=== PATIENT | female | born 1965 | race Caucasian/White ===

== ENCOUNTER 2017-12-21 10:27 | Emergency (ER) | payer MEDICARE ==
[~2017-12-21] VITALS: Ht 167.6 cm; Wt 93.0 kg
[~2017-12-21 10:27] MED LIST: ACYC-1 PO; ALLE24TA PO; BUSP10 PO; CLON0.5T PO; CYMB60CA PO; DILT180C56 PO; LEXA10TA PO; LYRI75CA PO; ST J81CH PO; SULF1TAB47 PO; THYR30 PO; TRAZ100 PO; ZANA4CAP PO; ZANT300T PO
[2017-12-21 10:40] VITALS: BP 95/78; PULSE 78; RESP 16; TEMP 97.5; O2SAT 100
[2017-12-21] MEDS ORDERED: TIZA4CAP3 PO (10:54)
[2017-12-21] MEDS ORDERED: ESTRGEL TP (10:54)
[2017-12-21] MEDS ORDERED: SULF500T3 PO (10:54)
[2017-12-21] MEDS ORDERED: REST0.05 EACH EYE (10:54)
[2017-12-21] MEDS ORDERED: TELM1TAB2 PO (10:54)
[2017-12-21] MEDS ORDERED: LEFL1TAB3 PO (10:54)
[2017-12-21] MEDS ORDERED: CYMB60CA PO (10:54)
[2017-12-21] MEDS ORDERED: LYRI150C PO (10:54)
[2017-12-21] MEDS ORDERED: AMLO5TAB2 PO (10:54)
[2017-12-21] MEDS ORDERED: ESTR42.5V VAGINAL (10:54)
[2017-12-21] MEDS ORDERED: ESTRPOW15 (10:54)
[2017-12-21 10:56] VITALS: BP 104/58; PULSE 72; RESP 18; O2SAT 100
[2017-12-21 11:30] VITALS: BP_SYST 104; BP_SYST 111; BP_SYST 99; BP_DIAS 55; BP_DIAS 60; BP_DIAS 63
[2017-12-21] MEDS ORDERED: SODIUM CHLOR 0.9% 1000 ML INJ 1,000 ML IV ONE (11:30)
[2017-12-21 11:43] VITALS: O2SAT 96
--- NOTE | 2017-12-21 11:44 | PD ---
HPI Chief Complaint: Dizziness Time Seen by Provider: 11:21 Travel History International Travel<30 days: No Contact w/Intl Traveler<30days: No Traveled to known affect area: No History of Present Illness HPI 52-year-old female complains of lightheadedness, and low blood pressure and chest pain. Patient states that she started having upper chest tightness with radiation to the jaw. Patient started having dizziness and lightheadedness. Patient states that her systolic blood pressure was in the 60s and 80s at home. Patient has history hypertension and has been taking amlodipine 5 mg twice a day and Telmisartan 80 mg daily. Patient has history of rheumatoid arthritis and was advised by her physician to increase her sulfasalazine from 500 mg twice a day to 1000 mg twice a day starting last week. Patient denies any recent weight loss. Patient states that she has been eating well. Patient states that no other change in medication. Patient states that she has history of frequent chest pain in the past. Patient had normal stress test done by Dr. Alfaro about 2-3 months ago. Patient denies history diabetes or hyperlipidemia. Patient quit smoking in the past. 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, "INNER EAR") Family History Family Myocardial Infarction: Yes Social History Alcohol Use: No Tobacco Use: No Substance Use: No Allergies-Medications (Allergen,Severity, Reaction): Coded Allergies: bacitracin (Unverified Allergy, Severe, SWELLING, 12/21/17) erythromycin base (Unverified Allergy, Severe, WEAKNESS, NAUSEA, 12/21/17) gramicidin D (Unverified Allergy, Severe, SWELLING, 12/21/17) neomycin (Unverified Allergy, Severe, SWELLING, 12/21/17) penicillin G (Unverified Allergy, Severe, HIVES, 12/21/17) polymyxin B (Unverified Allergy, Severe, SWELLING, 12/21/17) Uncoded Allergies: "OPIATES" (Allergy, Severe, ITCHING, 05/20/14) Reported Meds & Prescriptions Reported Meds & Active Scripts Active Reported Restasis Opth (Cyclosporine Opth) 0.05% Emul 1 Drop EACH EYE BID Estrogel Topical (Estradiol) 0.06% Gel 1 Applic TP [id number] Estradiol (Estradiol Micronized) 100 % Pow Tizanidine (Tizanidine HCl) 4 Mg Cap 4 Mg PO BID Cymbalta DR (Duloxetine HCl) 60 Mg Capdr 60 Mg PO BID Lyrica (Pregabalin) 150 Mg Cap 150 Mg PO BID Leflunomide 20 Mg Tab 20 Mg PO DAILY Sulfasalazine 500 Mg Tab 1,000 Mg PO BID Telmisartan 80 Mg Tab 80 Mg PO DAILY Amlodipine (Amlodipine Besylate) 5 Mg Tab 5 Mg PO BID Review of Systems General / Constitutional: No: Fever Eyes: No: Visual changes HENT: Positive: Lightheadedness, No: Headaches Cardiovascular: No: Chest Pain or Discomfort Respiratory: No: Shortness of Breath Gastrointestinal: No: Abdominal Pain Genitourinary: No: Dysuria Musculoskeletal: No: Pain Skin: No Rash Neurologic: No: Weakness Psychiatric: No: Depression Endocrine: No: Polydipsia Hematologic/Lymphatic: No: Easy Bruising Physical Exam Narrative GENERAL: Well-nourished, well-developed patient. SKIN: Focused skin assessment warm/dry. HEAD: Normocephalic. EYES: No scleral icterus. No injection or drainage. NECK: Supple, trachea midline. No JVD or lymphadenopathy. CARDIOVASCULAR: Regular rate and rhythm without murmurs, gallops, or rubs. RESPIRATORY: Breath sounds equal bilaterally. No accessory muscle use. GASTROINTESTINAL: Abdomen soft, non-tender, nondistended. MUSCULOSKELETAL: No cyanosis, or edema. BACK: Nontender without obvious deformity. No CVA tenderness. Neurologic exam normal. Data Data Last Documented VS Vital Signs Date Time Temp Pulse Resp B/P (MAP) Pulse Ox O2 Delivery O2 Flow Rate FiO2 12/21/17 11:43 96 Room Air 12/21/17 11:30 71 78 80 12/21/17 10:56 18 12/21/17 10:40 97.5 Orders Orders Electrocardiogram (12/21/17 11:30) Complete Blood Count With Diff (12/21/17 11:30) Basic Metabolic Panel (Bmp) (12/21/17 11:30) Creatine Kinase (Cpk) (12/21/17 11:30) Troponin I (12/21/17 11:30) Prothrombin Time / Inr (Pt) (12/21/17 11:30) Act Partial Throm Time (Ptt) (12/21/17 11:30) Thyroid Stimulating Hormone (12/21/17 11:30) Chest, Single Ap (12/21/17 11:30) Iv Access Insert/Monitor (12/21/17 11:30) Ecg Monitoring (12/21/17 11:30) Oximetry (12/21/17 11:30) Sodium Chlor 0.9% 1000 Ml Inj (Ns 1000 M (12/21/17 11:30) Ed Discharge Order (12/21/17 14:38) Labs Laboratory Tests Test 12/21/17 11:37 White Blood Count 4.4 TH/MM3 Red Blood Count 3.80 MIL/MM3 Hemoglobin 11.3 GM/DL Hematocrit 35.2 % Mean Corpuscular Volume 92.7 FL Mean Corpuscular Hemoglobin 29.8 PG Mean Corpuscular Hemoglobin Concent 32.1 % Red Cell Distribution Width 13.5 % Platelet Count 227 TH/MM3 Mean Platelet Volume 8.6 FL Neutrophils (%) (Auto) 53.3 % Lymphocytes (%) (Auto) 29.0 % Monocytes (%) (Auto) 13.0 % Eosinophils (%) (Auto) 3.5 % Basophils (%) (Auto) 1.2 % Neutrophils # (Auto) 2.2 TH/MM3 Lymphocytes # (Auto) 1.3 TH/MM3 Monocytes # (Auto) 0.6 TH/MM3 Eosinophils # (Auto) 0.2 TH/MM3 Basophils # (Auto) 0.1 TH/MM3 CBC Comment DIFF FINAL Differential Comment Prothrombin Time 9.9 SEC Prothromb Time International Ratio 1.0 RATIO Activated Partial Thromboplast Time 26.8 SEC Blood Urea Nitrogen 14 MG/DL Creatinine 0.99 MG/DL Random Glucose 96 MG/DL Calcium Level 8.7 MG/DL Sodium Level 137 MEQ/L Potassium Level 4.3 MEQ/L Chloride Level 103 MEQ/L Carbon Dioxide Level 26.9 MEQ/L Anion Gap 7 MEQ/L Estimat Glomerular Filtration Rate 59 ML/MIN Total Creatine Kinase 87 U/L Troponin I LESS THAN 0.02 NG/ML Thyroid Stimulating Hormone 3rd Gen 4.070 uIU/ML MDM Medical Decision Making Medical Screen Exam Complete: Yes Emergency Medical Condition: Yes Interpretation(s) 12:37 PM. Chest x-ray shows no acute consolidation. CBC within normal limit. BMP within normal limit. Cardiac enzymes are normal. TSH 4.07. Differential Diagnosis Differential diagnosis including vasovagal reaction, dehydration, electrolyte imbalance, side effect to medication. Narrative Course 52-year-old female with lightheadedness and hypotension. Patient has history of hypertension and on medications. Orthostatic vital signs normal. Normal saline solution 1 L IV bolus. 1438 PM. Patient is feeling much better. Blood pressure in the 120s range. Diagnosis Primary Impression: Hypotension Qualified Codes: I95.9 - Hypotension, unspecified Patient Instructions: General Instructions Additional Instructions: Hold blood pressure medications until blood pressure improved. Follow-up with personal physician. Return if persistent problem hypertension. Med/Other Pt SpecificInfo: Existing Med Changed Disposition: 01 DISCHARGE HOME Condition: Stable Grover Aly MD Dec 21, 2017 11:44
[2017-12-21 11:45] LABS: AUTOMATED NEUTROPHIL # 2.2 TH/MM3 (1.8-7.7); BASOPHIL # 0.1 TH/MM3 (0-0.2); BASOPHIL % 1.2 % (0.0-2.0); EOSINOPHIL # 0.2 TH/MM3 (0-0.4); EOSINOPHIL % 3.5 % (0.0-4.0); HEMATOCRIT 35.2 % (35.0-46.0); HEMOGLOBIN 11.3 GM/DL (11.6-15.3); LYMPHOCYTE # 1.3 TH/MM3 (1.0-4.8); MEAN CELL VOLUME 92.7 FL (80.0-100.0); MEAN CORPUSCULAR HEMOGLOBIN 29.8 PG (27.0-34.0); MEAN CORPUSCULAR HGB CONC 32.1 % (32.0-36.0); MEAN PLATELET VOLUME 8.6 FL (7.0-11.0); MONOCYTE # 0.6 TH/MM3 (0-0.9); NEUT % 53.3 % (16.0-70.0); PLATELET COUNT 227 TH/MM3 (150-450); RED CELL DISTRIBUTION WIDTH 13.5 % (11.6-17.2); WHITE BLOOD COUNT 4.4 TH/MM3 (4.0-11.0)
[2017-12-21 11:57] LABS: CHLORIDE 103 MEQ/L (98-107); SODIUM (NA) 137 MEQ/L (136-145)
[2017-12-21 12:00] LABS: CALCIUM 8.7 MG/DL (8.5-10.1)
[2017-12-21 12:01] LABS: BICARBONATE 26.9 MEQ/L (21.0-32.0); BLOOD UREA NITROGEN 14 MG/DL (7-18); GLUCOSE,RANDOM 96 MG/DL (74-106); PROTHROMBIN TIME - PATIENT 9.9 SEC (9.8-11.6)
[2017-12-21 12:04] LABS: CREATININE 0.99 MG/DL (0.50-1.00); GLOMERULAR FILTRATION RATE 59 ML/MIN (>89)
[2017-12-21 12:09] LABS: TROPONIN I LESS THAN 0.02 NG/ML (0.02-0.05)
--- NOTE | 2017-12-21 12:22 | RADRPT ---
EXAM DATE/TIME: 12/21/2017 12:03 [facility] COMPARISON: No previous studies available for comparison. INDICATIONS : Short of breath MEDICAL HISTORY : None. SURGICAL HISTORY : None. ENCOUNTER: Initial ACUITY: 1 day PAIN SCORE: 3/10 LOCATION: Bilateral chest FINDINGS: A single view of the chest demonstrates the lungs to be symmetrically aerated without evidence of mas s, infiltrate or effusion. The cardiomediastinal contours are unremarkable. Osseous structures are intact. CONCLUSION: No acute disease. Isabel Lancaster MD on December 21, 2017 at 12:19 Board Certified Radiologist. This report was verified electronically.
[2017-12-21 14:49] VITALS: BP 134/87
--- NOTE | 2017-12-22 00:44 | EKG ---
Date Performed: 12/21/2017 Time Performed: 12:01:44 PTAGE: 52 years EKG: Sinus rhythm NORMAL ECG PREVIOUS TRACING : 05/20/2014 19.48 Since the prior tracing, there has been no significant wu DOCTOR: Garth Munroe Interpretating Date/Time 12/22/2017 00:43:32
== END 2017-12-21 14:56 | disposition home or self-care (01) ==
LOC: PHED 10:27
DX: I95.9 Hypotension, unspecified (principal); F32.9 Major depressive disorder, single episode, unspecified; I10 Essential (primary) hypertension; M79.7 Fibromyalgia; Z85.828 Personal history of other malignant neoplasm of skin; Z88.0 Allergy status to penicillin; Z88.8 Allergy status to other drugs, medicaments and biological substances; Z88.1 Allergy status to other antibiotic agents
CPT/HCPCS: 71045; 80048; 82550; 84443; 84484; 85025; 85610; 85730; 93005; 96360; 96361; 99285; J7030